=== PATIENT | female | born 1980 | race Two or more races ===

== ENCOUNTER 2022-02-11 11:45 | Inpatient (IN) | payer OTHER ==
[~2022-02-11] VITALS: Ht 157.5 cm; Wt 71.2 kg
== END 2022-02-14 18:24 | disposition home or self-care (01) | DRG 743 ==
LOC: O/R 02-13 05:50 → SURG 02-13 12:30 → OB/GYN 02-13 12:41 → O/R 02-13 13:41 → OB/GYN 02-13 13:42 → SURG 02-13 14:15 → OB/GYN 02-14 18:24
PROVIDERS: Surgery; ADMIT Obstetrics & Gynecology Gynecology; ATTEND Obstetrics & Gynecology Gynecology
PROC: 0UT14ZZ Resection of Left Ovary, Percutaneous Endoscopic Approach (ICD-10-PCS; 2022-02-13)
PROC: 0DNW4ZZ Release Peritoneum, Percutaneous Endoscopic Approach (ICD-10-PCS; 2022-02-13)
PROC: 0DNP4ZZ Release Rectum, Percutaneous Endoscopic Approach (ICD-10-PCS; 2022-02-13)
PROC: 0DNN4ZZ Release Sigmoid Colon, Percutaneous Endoscopic Approach (ICD-10-PCS; 2022-02-13)
PROC: 0TNB4ZZ Release Bladder, Percutaneous Endoscopic Approach (ICD-10-PCS; 2022-02-13)
PROC: 0TJB8ZZ Inspection of Bladder, Via Natural or Artificial Opening Endoscopic (ICD-10-PCS; 2022-02-13)
PROC: 0UNF4ZZ Release Cul-de-sac, Percutaneous Endoscopic Approach (ICD-10-PCS; 2022-02-13)
PROC: 0UN94ZZ Release Uterus, Percutaneous Endoscopic Approach (ICD-10-PCS; 2022-02-13)
PROC: 0DJD8ZZ Inspection of Lower Intestinal Tract, Via Natural or Artificial Opening Endoscopic (ICD-10-PCS; 2022-02-13)
PROC: 0UT94ZZ Resection of Uterus, Percutaneous Endoscopic Approach (ICD-10-PCS; principal; 2022-02-13 14:15)
PROC: 0UT64ZZ Resection of Left Fallopian Tube, Percutaneous Endoscopic Approach (ICD-10-PCS; 2022-02-13 14:15)
DX: D25.1 Intramural leiomyoma of uterus (principal); D25.2 Subserosal leiomyoma of uterus; K66.0 Peritoneal adhesions (postprocedural) (postinfection); N72 Inflammatory disease of cervix uteri; N83.12 Corpus luteum cyst of left ovary; N80.2 Endometriosis of fallopian tube; Z20.822 Contact with and (suspected) exposure to COVID-19